=== PATIENT | male | born 1985 | race Caucasian/White ===

== ENCOUNTER 2017-11-12 20:24 | Emergency (ER) | END 2017-11-12 23:54 | disposition home or self-care (01) ==

== ENCOUNTER 2017-11-14 01:31 | Observation (INO) | END 2017-11-16 15:04 | disposition home or self-care (01) ==

== ENCOUNTER 2017-11-19 10:01 | Emergency (ER) | END 2017-11-19 14:26 | disposition home or self-care (01) ==

== ENCOUNTER 2017-11-21 09:37 | Emergency (ER) | END 2017-11-21 18:10 ==